=== PATIENT | female | born 1985 | race Hispanic/Latino ===

== ENCOUNTER 2017-10-10 06:40 | Emergency (ER) | payer OTHER ==
[2017-10-10 07:00] VITALS: BMI 29.2
[2017-10-10 07:04] VITALS: BP 135/93; PULSE 75; RESP 16; TEMP 97.2; O2SAT 98
[2017-10-10] MEDS ORDERED: Iohexol 240 (50 ml) PO ONE (07:28)
[2017-10-10] MEDS ORDERED: Sodium Chloride 0.9% 1,000 ML IV STA (07:28)
[2017-10-10] MEDS ORDERED: Iohexol 240 (50 ml) ONE (07:39)
[2017-10-10 07:47] LABS: BASO # 0.1 K/uL (0.0-0.2); BASO % 0.8 % (0.0-2.0); EOS # 0.5 K/uL (0.0-0.7); EOS % 6.1 % (0.0-4.0); HEMOGLOBIN 13.7 g/dL (12.0-16.0); LYMPH # 2.2 K/uL (1.0-4.3); LYMPH % 26.4 % (20.0-40.0); MEAN CELL VOLUME 89.2 fl (81.0-99.0); MEAN CORPUSCULAR HEMOGLOBIN 30.1 pg (27.0-31.0); MEAN CORPUSCULAR HGB CONC 33.7 g/dL (33.0-37.0); MEAN PLATELET VOLUME 7.4 fl (7.2-11.7); MONO # 0.7 K/uL (0.0-0.8); MONO % 8.2 % (0.0-10.0); NEUT # 4.9 K/uL (1.8-7.0); NEUT % 58.5 % (50.0-75.0); NRBC % 0.1 % (0.0-0.0); RBC 4.56 Mil/uL (3.80-5.20); RED CELL DISTRIBUTION WIDTH 13.9 % (11.5-14.5); WHITE BLOOD COUNT 8.3 K/uL (4.8-10.8)
--- NOTE | 2017-10-10 07:53 | ED PDOC ---
HPI: Abdomen Time Seen by Provider: 10/10/17 07:20 Chief Complaint (Nursing): Abdominal Pain Chief Complaint (Provider): Abdominal Pain History Per: Patient History/Exam Limitations: no limitations Onset/Duration Of Symptoms: Days (x2) Current Symptoms Are (Timing): Still Present Additional Complaint(s): 32 year old female with a past medical history of migraines, who presents to the ED complaining of right sided flank pain x1 day. Patient states she felt low back soreness yesterday, but was awoken by "palpable musculoskeletal pain" today. Also states the pain is intermittent and radiates from her low back across her right side to her abdomen. Denies chest pain, shortness of breath, diarrhea, or other symptoms. Also denies any new food or drinks. No dysuria. PMD: Provider TBD Past Medical History Reviewed: Historical Data, Nursing Documentation, Vital Signs Vital Signs: Last Vital Signs Temp 97.2 F L 10/10/17 07:01 Pulse 75 10/10/17 07:01 Resp 16 10/10/17 07:01 BP 135/93 H 10/10/17 07:01 Pulse Ox 98 10/10/17 07:59 - Medical History PMH: Migraine - Surgical History Surgical History: No Surg Hx - Family History Family History: States: Unknown Family Hx - Living Arrangements Living Arrangements: With Family - Home Medications Home Medications: Ambulatory Orders Medication Instructions Recorded Ibuprofen [Motrin] 600 mg PO TID 7 Days tab 10/10/17 Levonorgestrel-Ethin Estradiol 1 tab PO DAILY 10/10/17 [Altavera-28 Tablet] Tamsulosin [Flomax] 0.4 mg PO DAILY PRN #6 cap 10/10/17 - Allergies Allergies/Adverse Reactions: Allergies Allergy/AdvReac Type Severity Reaction Status Date / Time No Known Allergies Allergy Verified 10/10/17 07:00 Review of Systems ROS Statement: Except As Marked, All Systems Reviewed And Found Negative Cardiovascular: Negative for: Chest Pain Respiratory: Negative for: Shortness of Breath Gastrointestinal: Positive for: Abdominal Pain. Negative for: Diarrhea Musculoskeletal: Positive for: Back Pain Physical Exam - Reviewed Nursing Documentation Reviewed: Yes Vital Signs Reviewed: Yes - Physical Exam Appears: Positive for: Non-toxic, No Acute Distress Head Exam: Positive for: ATRAUMATIC, NORMAL INSPECTION, NORMOCEPHALIC Skin: Positive for: Normal Color, Warm, Dry. Negative for: Rash Eye Exam: Positive for: EOMI, Normal appearance, PERRL Neck: Positive for: Normal, Painless ROM, Supple Cardiovascular/Chest: Positive for: Regular Rate, Rhythm. Negative for: Murmur Respiratory: Positive for: Normal Breath Sounds. Negative for: Respiratory Distress Gastrointestinal/Abdominal: Positive for: Soft, Tenderness (periumbilical and right sided) Back: Positive for: Normal Inspection. Negative for: L CVA Tenderness, R CVA Tenderness, Vertebral Tenderness Extremity: Positive for: Normal ROM. Negative for: Pedal Edema, Deformity Neurologic/Psych: Positive for: Alert, Oriented (x3). Negative for: Motor/ Sensory Deficits - Laboratory Results Result Diagrams: 10/10/17 07:39 10/10/17 07:39 Interpretation Of Abn Labs: no acute Urine dip results: Positive for: Blood - ECG O2 Sat by Pulse Oximetry: 98 (RA) Pulse Ox Interpretation: Normal - Progress ED Course And Treament: 1104: Stable. AAOx3. Pain free. Tolerated PO. Fu with pcp. Likely recent passed stone. Medical Decision Making Medical Decision Making: Time: 07:28 Initial Impression: Rule out appendicitis/stones Initial Plan: --CT Abdomen and Pelvis PO and IV contrast --CMP --Lipase --ED urine --Urine dip --CBC w/ differential --Sodium Chloride 0.9% 1,000 mls/hr --Iohexol 50 ml PO --Toradol 15 mg IVP --Reevaluation Scribe Attestation: Documented by Franklin Fraire, acting as a scribe for Francisco Calhoun MD. Provider Scribe Attestation: All medical record entries made by the Scribe were at my direction and personally dictated by me. I have reviewed the chart and agree that the record accurately reflects my personal performance of the history, physical exam, medical decision making, and the department course for this patient. I have also personally directed, reviewed, and agree with the discharge instructions and disposition. Disposition - Clinical Impression Clinical Impression: Abdominal pain, Kidney stone - Patient ED Disposition Is Patient to be Admitted: No Counseled Patient/Family Regarding: Studies Performed, Diagnosis, Need For Followup, Rx Given - Disposition Referrals: [facility] [Outside] - 10/11/17 Lucas Henson MD [Medical Doctor] - 10/11/17 Disposition: Routine/Home Disposition Time: 11:06 Condition: STABLE Additional Instructions: Return if not better in 3 days. Prescriptions: Ibuprofen [Motrin] 600 mg PO TID 7 Days tab Tamsulosin [Flomax] 0.4 mg PO DAILY PRN #6 cap PRN Reason: Pain Instructions: Kidney Stones (ED) Forms: [facility] ([employer]), [facility] ED School/Work Excuse
[2017-10-10 07:56] LABS: ALB/GLOB RATIO 1.3 (1.0-2.1); ALBUMIN 4.1 g/dL (3.5-5.0); ALT/SGPT 35 U/L (9-52); AST/SGOT 33 U/L (14-36); BLOOD UREA NITROGEN 14 mg/dl (7-17); CALCIUM 9.4 mg/dL (8.4-10.2); GFR AFRICAN-AMERICAN > 60; GFR NON-AFRICAN AMERICAN > 60; LIPASE 64 U/L (23-300)
--- NOTE | 2017-10-10 10:19 | CT ---
PROCEDURE: CT Abdomen and Pelvis with contrast HISTORY: pain eval for stone and appy COMPARISON: None. TECHNIQUE: Contrast dose: 0 IV contrast. Oral contrast was given. Axial and reformatted coronal and sagittal CT images of the abdomen and pelvis were obtained after oral contrast administration. Radiation dose: Total exam DLP = 871.66 mGy-cm. This CT exam was performed using one or more of the following dose reduction techniques: Automated exposure control, adjustment of the mA and/or kV according to patient size, and/or use of iterative reconstruction technique. FINDINGS: LOWER THORAX: Unremarkable. LIVER: Unremarkable. No gross lesion or ductal dilatation. GALLBLADDER AND BILE DUCTS: Unremarkable. PANCREAS: Unremarkable. No gross lesion or ductal dilatation. SPLEEN: Unremarkable. ADRENALS: Unremarkable. No mass. KIDNEYS AND URETERS: The right kidney appears slightly prominent in size. There is mild dilatation of the right kidney collecting system surrounding with mild stranding without evidence of obstructing stone. Findings may be due to infectious process. The left kidney is grossly unremarkable. VASCULATURE: Unremarkable. No aortic aneurysm. BOWEL: Unremarkable. No obstruction. No gross mural thickening. APPENDIX: Normal appendix. PERITONEUM: Unremarkable. No free fluid. No free air. LYMPH NODES: Unremarkable. No enlarged lymph nodes. BLADDER: Unremarkable. REPRODUCTIVE: There is a vaginal ring/pessary note. The uterus and adnexa are otherwise unremarkable. BONES: No acute fracture. OTHER FINDINGS: None. IMPRESSION: No evidence of appendicitis. Slightly prominent right kidney and mildly dilated right kidney collecting system without definite evidence of obstructing calculus. Findings may be due to recent passing of renal calculus versus infectious process such as UTI/pyelonephritis. Otherwise no evidence of acute pathology in the abdomen and pelvis.
== END 2017-10-10 11:33 | disposition home or self-care (01) ==
LOC: H.ER 06:40
DX: N20.0 Calculus of kidney (principal); R10.9 Unspecified abdominal pain
CPT/HCPCS: 74176; 80053; 81025; 83690; 85025; 96374; 99283; J1885; J7040; Q9966